=== PATIENT | male | born 1990 | race Caucasian/White ===

== ENCOUNTER 2019-07-12 12:09 | Inpatient (IN) | payer OTHER ==
[~2019-07-12] VITALS: Ht 187.9 cm; Wt 85.0 kg
--- NOTE | ~2019-07-12 | EKG ---
[place], [place] ELECTROCARDIOGRAM REPORT NAME: RENA CRAMER UNIT #: [id number] ROOM: 424 DOCTOR: PABLO DRAFT REPORT BIRTHDATE: [birth year] [facility] Test Date: 2019-07-12 Test Time: 13:17:38 Pat Name: RENA CRAMER Department: Room: 424 Gender: M Junior Programmer: : 1990 Requested By: BARBARA CANALES Order Number: [id number] Reading MD: Abebe Moss MD Measurements Intervals [place] Rate: 65 P: 30 MA: 155 QRS: 19 QRSD: 113 T: 28 QT: 436 QTc: 454 Interpretive Statements Sinus rhythm Borderline intraventricular conduction delay ST elev, probable normal early repol pattern No previous ECG available for comparison Electronically Signed On 07-12-2019 13:05:55 PDT by Abebe Moss MD CM:EKGRPT:ELECTROCARDIOGRAM REPORT [id number] BARBARA MARIE DRAFT REPORT BARBARA CANALES DO
[2019-07-12 12:11] VITALS: BP 147/88
[2019-07-12 12:56] LABS: BILIRUBIN NEGATIVE (NEGATIVE); BLOOD NEGATIVE (NEGATIVE); CLARITY CLOUDY (CLEAR); COLOR YELLOW (YELLOW); GLUCOSE NEGATIVE (NEGATIVE); KETONE NEGATIVE (NEGATIVE); LEUKO ESTERASE 1+ (NEGATIVE); NITRITE NEGATIVE (NEGATIVE); SPECIFIC GRAVITY 1.025 (1.005-1.030); UROBILINOGEN 0.2 E.U./dl (0.2-1.0)
[2019-07-12 13:05] LABS: WBC TNTC wbc/hpf (0-5)
[2019-07-12 13:07] LABS: BACTERIA 2+; MUCOUS 1+
[2019-07-12 13:07] LABS: BASO % 0.2 % (0.0-1.0); EOS # 0.1 10*3/uL (0.0-0.4); EOS % 0.7 % (1.0-4.0); HEMATOCRIT 39.1 % (42.0-52.0); HEMOGLOBIN 13.2 g/dl (14.0-18.0); LYMPH # 0.9 10*3/uL (1.3-4.4); LYMPH % 9.6 % (27.0-41.0); MEAN CELL VOLUME 90.3 fl (80.0-94.0); MEAN CORPUSCULAR HGB 30.5 pg (27.0-31.0); MEAN CORPUSCULAR HGB CONC 33.8 g/dl (33.0-37.0); MEAN PLATELET VOLUME 9.7 fl (9.6-12.3); MONO # 0.6 10*3/uL (0.1-1.0); MONO % 6.9 % (3.0-9.0); NEUT # 7.4 10*3/uL (2.3-7.9); NEUT % 82.3 % (47.0-73.0); PLATELET COUNT AUTOMATED 238 10*3/uL (130-400); RED BLOOD COUNT 4.33 10*6/uL (4.50-5.90); RED CELL DISTRI WIDTH 11.9 % (0-14.5)
[2019-07-12 13:13] LABS: URINE AMPHETAMINES < 1000 (1000ng/ml); URINE BARBITURATES < 200 (200ng/ml); URINE BENZODIAZEPINES < 200 (200ng/ml); URINE CANNABINOIDS (THC) < 50 (50ng/ml); URINE COCAINE > 300 (300ng/ml); URINE METHADONE < 300 (300ng/ml); URINE OPIATES > 300 (300ng/ml)
[2019-07-12 13:19] LABS: ACT PARTIAL THROMBO TIME 29.2 SECONDS (20.0-32.1)
[2019-07-12 13:23] LABS: URINE PHENCYCLIDINE < 25 (25ng/ml)
[2019-07-12 13:24] LABS: ALBUMIN 3.4 gm/dl (3.1-4.5); ALKALINE PHOSPHATASE 66 U/L (45-117); BUN 11 mg/dl (7-24); CHLORIDE 99 mmol/L (98-107); CREATININE 0.64 mg/dL (0.70-1.30); ETHYL ALCOHOL < 3.0 mg/dl (<3); POTASSIUM 3.8 mmol/L (3.5-5.1); SGOT/AST 56 IU/L (3-35); SGPT/ALT 42 U/L (12-78); SODIUM 133 mmol/L (136-145); TOTAL PROTEIN 7.1 gm/dL (6.4-8.2)
--- NOTE | 2019-07-12 13:28 | NUR ---
ATTEMPTED TO CALL FOR ADMISSION TO FLOOR BUT NURSE IS AT [facility] AND WAS ASKED TO WAIT 10 MINUTES TO BRING PT TO FLOOR.
--- NOTE | 2019-07-12 13:50 | NUR ---
29 year old MALE admitted to room # 424 for stabilization. Reports an addiction to HEROIN last used 12 hours prior to admission. Compliant with admission procedure. See assessment forms for additional information about patient status.
[2019-07-12 14:00] VITALS: BP 133/87
[2019-07-12] MEDS ORDERED: CLINDAMYCIN150 MG PO (14:38)
[2019-07-12] MEDS ORDERED: DOXYCYCLINE100 M3 PO (14:39)
--- NOTE | 2019-07-12 14:44 | NUR ---
PATIENT MEETS [facility]. PATIENT IS WANTING RESIDENTIAL TREATMENT AT [facility] IN [facility]. JOSELIN ROMEO B.A. SALES FLOOR TEAM MEMBER
[2019-07-12 16:00] VITALS: BP 119/70
[2019-07-12 20:00] VITALS: BP 116/67
--- NOTE | 2019-07-12 21:34 | NUR ---
PATIENT REQUESTING ANY MEDICATION HE CAN RECEIVE AT THIS TIME D/T WITHDRAWAL SYMPTOMS. MEDICATED WITH PRN BENTYL FOR LEG CRAMPING, TRAZODONE FOR INSOMNIA, MOTRIN FOR MUSCLE ACHES, REQUIP FOR RESTLESS LEGS, ROBAXIN FOR ABDOMINAL CRAMPING, VISTARIL FOR ANXIETY AND ZOFRAN FOR NAUSEA. ROUTINE SUBUTEX GIVEN ALSO. WILL MONITOR FOR EFFECTIVENESS. CALL LIGHT IN REACH.
[2019-07-13] VITALS: BP 100/48
[2019-07-13 08:00] VITALS: BP 92/43
[2019-07-13 12:00] VITALS: BP 101/76
--- NOTE | 2019-07-13 14:04 | NUR ---
[place] STAFF SPOKE WITH PATIENT ABOUT HIS AFTERCARE PLAN. PATIENT IS GOING TO [facility] FOR RESIDENTIAL TREATMENT. JOSELIN ROMEO B.A. [employer]
[2019-07-13 16:00] VITALS: BP 110/57
--- NOTE | 2019-07-13 16:18 | NUR ---
Medicated with zofran po and vistaril po per prn order for complaints of nausea and anxiety.
--- NOTE | 2019-07-13 17:10 | NUR ---
States that medications given earlier were effective for nausea and anxiety.
[2019-07-13 21:42] VITALS: BP 116/54
[2019-07-14] VITALS: BP 109/60
[2019-07-14 08:00] VITALS: BP 132/68
--- NOTE | 2019-07-14 10:49 | NUR ---
Notified by Laurel from [place] that pt states he wants to leave, states he told her that his ride is already on their way. I spoke with pt and he states he is feeling fine and isn't having any withdrawal symptoms. States he just wants to get on with his rehab. States he has arrangements made to go to a [facility] in [place].
--- NOTE | 2019-07-14 10:55 | NUR ---
Dr. Pereira notified that pt wants to leave, notified that he has two doses of subutex but states he doesn't need them. Notified that his ride is already on his way.
--- NOTE | 2019-07-14 11:15 | NUR ---
Pt came to nurses station states his ride is here and he is leaving. Left with belongings. Pt had NO IV.
--- NOTE | 2019-07-14 11:17 | NUR ---
PATIENT REPORTED TO [facility] STAFF THAT HE WANTS TO LEAVE AND HAS ALREADY CALLED FOR HIS RIDE. [place] STAFF ENCOURAGED PATIENT TO STAY. PATIENT WAS TO FOLLOW UP WITH [facility] FOR HIS AFTERCARE PLAN. JOSELIN ROMEO B.A. APPEALS REPRESENTATIVE
== END 2019-07-14 11:15 | disposition left against medical advice (07) | DRG 770 ==
LOC: ED 12:09 → EDHOLD 12:50 → 4E 12:50
PROVIDERS: Emergency Medicine; ADMIT Internal Medicine
DX: F11.23 Opioid dependence with withdrawal (principal); D64.9 Anemia, unspecified; F17.210 Nicotine dependence, cigarettes, uncomplicated; I80.8 Phlebitis and thrombophlebitis of other sites; Z53.29 Procedure and treatment not carried out because of patient's decision for other reasons; L03.114 Cellulitis of left upper limb; R73.9 Hyperglycemia, unspecified; E87.1 Hypo-osmolality and hyponatremia; Z98.1 Arthrodesis status